=== PATIENT | female | born 1965 | race Two or more races ===

== ENCOUNTER → 2024-03-27 | Outpatient (CLI) | payer BC, SELFPAY ==
--- NOTE | 2024-03-27 09:00 | XR_ITS ---
Examination: Breast ultrasound complete, bilateral Date and time of exam: March 27, 2024 0954 hours INDICATIONS: Mammogram February 15, 2024 8 mm focal asymmetry nipple level right breast Technique: Real-time grayscale ultrasonographic imaging bilateral breasts, including all 4 quadrants as well as nipple retroareolar and axillary regions. Findings: Sonographic images right breast 3:00 retroareolar cyst 6 x 4 mm Dilated ducts retroareolar No solid nodules Sonographic images left breast No cystic or solid mass IMPRESSION: BI-RADS Category 2: Benign findings
--- NOTE | 2024-03-27 10:00 | XR_ITS ---
Examination: Diagnostic digital mammography, unilateral, right Computer aided detection 3-D breast Tomosynthesis, unilateral Date and time of exam: March 27, 2024 1026 hours INDICATIONS: Mammogram February 15, 2024 8 mm focal asymmetry nipple level right breast CC view Technique: Nonmagnified MLO, CC views of the right breast have been obtained, reconstructed from 3-D Tomosynthesis images. R2 computer aided detection program utilized for evaluation of suspicious masses and/or abnormal calcifications. 3-D Tomosynthesis images obtained. Findings: The breast is heterogeneously dense, which may obscure small masses Right breast sonogram today demonstrates 3:00 cyst no suspicious nodules No mammographic suspicious mass right breast is noted Impression: BI-RADS category 2: Benign findings Return to yearly follow-up mammography
== END | disposition home or self-care (01) ==
PROVIDERS: PCP Family Medicine; Referring Provider Family Medicine; Visit Provider Family Medicine
DX: R92.321 Mammographic fibroglandular density, right breast (principal); N64.89 Other specified disorders of breast
CPT/HCPCS: 76641; 77061; 77065; G0279